=== PATIENT | male | born 1965 | race Caucasian/White ===

== ENCOUNTER 2018-07-03 11:22 | Inpatient (IN) | payer OTHER ==
[2018-07-03 12:33] VITALS: BMI 19.7
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
[2018-07-03] MEDS ORDERED: MENTHOL/PHENOL 1 EACH UD MM PRN (14:50)
[2018-07-03] MEDS ORDERED: MAG HYDROX/AL HYDROX/SIMETH 30 ML UNIT-DOSE CUP PO PRN (14:50)
[2018-07-03] MEDS ORDERED: IBUPROFEN 400 MG TABLET (FP) PO PRN (14:50)
[2018-07-03] MEDS ORDERED: P-EPHED 60MG/TRIPROLIDI 2.5MG TABLET PO PRN (14:50)
[2018-07-03] MEDS ORDERED: MAGNESIUM HYDROX 2400MG/30ML ORAL SUSPENSION 30 ML CUP PO PRN (14:50)
[2018-07-03] MEDS ORDERED: guaiFENesin/D-METHORPHAN HB 10 ML UNIT-DOSE CUPS PO PRN (14:50)
[2018-07-03] MEDS ORDERED: MAGNESIUM CITRATE 300 ML BOTTLE PO PRN (14:50)
[2018-07-03] MEDS ORDERED: hydrOXYzine PAMOATE 50 MG CAPSULE (FP) PO PRN (14:50)
[2018-07-03] MEDS ORDERED: LOPERAMIDE HCL 2 MG CAPSULE PO PRN (14:50)
[2018-07-03] MEDS ORDERED: COLLOIDAL OATMEAL 1 BAR EACH TP PRN (15:32)
[2018-07-03] MEDS: chlordiazePOXIDE HCL 25 MG CAPSULE PO PRN (15:59)
[2018-07-03] MEDS: ACETAMINOPHEN 325 MG TABLET (FP) PO PRN (16:46)
[2018-07-03] MEDS: chlordiazePOXIDE HCL 25 MG CAPSULE PO SCH ×2 (16:47→22:20)
[2018-07-03] MEDS: NICOTINE POLACRILEX 2 MG GUM BUC PRN (16:51)
[2018-07-03] MEDS: THIAMINE HCL 100 MG TABLET (FP) PO SCH (22:21)
[2018-07-03] MEDS: BUPRENORPHINE/NALOXONE 8 MG/2 MG FILM PACKET SL SCH (22:21)
[2018-07-03] MEDS: MELATONIN 5 MG TABLETS PO PRN (22:21)
[2018-07-04] MEDS: chlordiazePOXIDE HCL 25 MG CAPSULE PO SCH ×4 (05:32→22:02)
[2018-07-04] MEDS: BUPRENORPHINE/NALOXONE 8 MG/2 MG FILM PACKET SL SCH ×3 (05:33→22:02)
[2018-07-04 10:06] LABS: HEMATOCRIT 40.8 % (35.4-49); HEMOGLOBIN 13.4 GM/dL (11.7-16.9); MCH 28.4 pg (25.7-33.7); MCHC 32.9 g/dl (32.0-35.9); MEAN CELL VOLUME 86.2 fl (80-96); MEAN PLT VOLUME 9.3 fl (7.5-11.1); PLATELET COUNT 168 K/MM3 (134-434); RBC 4.73 M/mm3 (4.00-5.60); RDW 13.8 % (11.9-15.9)
[2018-07-04] MEDS: PRENATAL VITAMINS W/ FOLIC ACID TABLET (FP) PO SCH (10:19)
[2018-07-04 10:37] LABS: ALBUMIN 4.3 g/dl (3.4-5.0); ALK PHOS 84 U/L (45-117); ANION GAP 12 MMOL/L (8-16); BILIRUBIN,TOTAL 0.3 mg/dL (0.2-1); BLOOD UREA NITROGEN 18 mg/dL (7-18); CALCIUM 9.1 mg/dL (8.5-10.1); CHLORIDE 102 mmol/L (98-107); CO2 27 mmol/L (21-32); CREATININE 0.9 mg/dL (0.55-1.3); GLUCOSE,RANDOM 64 mg/dL (74-106); POTASSIUM 4.2 mmol/L (3.5-5.1); SGOT/AST 22 U/L (15-37); SGPT/ALT 17 U/L (13-61); SODIUM 140 mmol/L (136-145)
[2018-07-04] MEDS: ACETAMINOPHEN 325 MG TABLET (FP) PO PRN (11:16)
--- NOTE | 2018-07-04 14:09 | PN ---
S CIWA - CIWA Score Nausea/Vomitin Muscle Tremors: 4-Moderate,w/Arms Extend Anxiety: 4-Mod. Anxious/Guarded Agitation: 4-Moderately Restless Paroxysmal Sweats: 3 Orientation: 0-Oriented Tacttile Disturbances: 0-None Auditory Disturbances: 0-None Visual Disturbances: 0-None Headache: 1-Very Mild CIWA-Ar Total Score: 18 BHS Progress Note (SOAP) Subjective: Stomach ache, poor appetite, interrupted sleep, anxious Objective: 07/04/18 14:07 Last Vital Signs Temp Pulse Resp BP Pulse Ox 97.0 F L 75 18 94/68 07/04/18 09:30 07/04/18 09:30 07/04/18 09:30 07/04/18 09:30 Hypotension noted: 68 Laboratory Tests 07/04/18 07/04/18 07/04/18 07:00 07:00 07:00 WBC 5.0 RBC 4.73 Hgb 13.4 Hct 40.8 MCV 86.2 MCH 28.4 MCHC 32.9 RDW 13.8 Plt Count 168 MPV 9.3 Sodium 140 Potassium 4.2 Chloride 102 Carbon Dioxide 27 Anion Gap 12 BUN 18 Creatinine 0.9 Creat Clearance w eGFR > 60 Random Glucose 64 L Calcium 9.1 Total Bilirubin 0.3 AST 22 ALT 17 Alkaline Phosphatase 84 Total Protein 8.0 Albumin 4.3 RPR Titer HIV 1&2 Antibody Screen Negative HIV P24 Antigen Negative 07/04/18 07:00 WBC RBC Hgb Hct MCV MCH MCHC RDW Plt Count MPV Sodium Potassium Chloride Carbon Dioxide Anion Gap BUN Creatinine Creat Clearance w eGFR Random Glucose Calcium Total Bilirubin AST ALT Alkaline Phosphatase Total Protein Albumin RPR Titer Nonreactive HIV 1&2 Antibody Screen HIV P24 Antigen Labs reviewed Assessment: 07/04/18 14:08 Withdrawal symptoms Noted with hypotension Plan: Continue detox Hypotension: asymptomatic, encouraged PO water hydration
[2018-07-04] MEDS: AMMONIUM LACTATE 12% LOTION 225 GM BOTTLE TP SCH ×2 (14:20→22:46)
[2018-07-04] MEDS: NICOTINE POLACRILEX 2 MG GUM BUC PRN ×2 (17:18→18:50)
[2018-07-04] MEDS: THIAMINE HCL 100 MG TABLET (FP) PO SCH (22:02)
[2018-07-04] MEDS: MELATONIN 5 MG TABLETS PO PRN (22:02)
[2018-07-05] MEDS: chlordiazePOXIDE HCL 25 MG CAPSULE PO PRN ×3 (00:44→20:11)
[2018-07-05] MEDS: ACETAMINOPHEN 325 MG TABLET (FP) PO PRN ×2 (03:06→22:32)
[2018-07-05] MEDS: BUPRENORPHINE/NALOXONE 8 MG/2 MG FILM PACKET SL SCH ×3 (05:28→22:23)
[2018-07-05] MEDS: chlordiazePOXIDE HCL 25 MG CAPSULE PO SCH ×2 (05:28→10:03)
[2018-07-05] MEDS: PRENATAL VITAMINS W/ FOLIC ACID TABLET (FP) PO SCH (10:03)
[2018-07-05] MEDS: AMMONIUM LACTATE 12% LOTION 225 GM BOTTLE TP SCH ×2 (10:04→22:32)
[2018-07-05] MEDS: NICOTINE POLACRILEX 2 MG GUM BUC PRN ×2 (10:06→20:11)
--- NOTE | 2018-07-05 10:41 | PN ---
S CIWA - CIWA Score Nausea/Vomitin-Mild Nausea/No Vomiting Muscle Tremors: 4-Moderate,w/Arms Extend Anxiety: 2 Agitation: 3 Paroxysmal Sweats: 1-Minimal Palms Moist Orientation: 0-Oriented Tacttile Disturbances: 1-Very Mild Itch/Numbness Auditory Disturbances: 0-None Visual Disturbances: 0-None Headache: 1-Very Mild CIWA-Ar Total Score: 13 BHS Progress Note (SOAP) Subjective: tremor sweat anxiety restlessness patient reported that he is in suboxone program x 15 years "they never found out " health teaching on negative consequences of methadone mixed with suboxone Objective: 07/05/18 10:43 Vital Signs Temperature 97.0 F L 07/05/18 09:16 Pulse Rate 109 H 07/05/18 09:16 Respiratory Rate 20 07/05/18 09:16 Blood Pressure 100/70 07/05/18 09:16 O2 Sat by Pulse Oximetry (%) Laboratory Last Values WBC 5.0 K/mm3 (4.0-10.0) 07/04/18 07:00 RBC 4.73 M/mm3 (4.00-5.60) 07/04/18 07:00 Hgb 13.4 GM/dL (11.7-16.9) 07/04/18 07:00 Hct 40.8 % (35.4-49) 07/04/18 07:00 MCV 86.2 fl (80-96) 07/04/18 07:00 MCH 28.4 pg (25.7-33.7) 07/04/18 07:00 MCHC 32.9 g/dl (32.0-35.9) 07/04/18 07:00 RDW 13.8 % (11.9-15.9) 07/04/18 07:00 Plt Count 168 K/MM3 (134-434) 07/04/18 07:00 MPV 9.3 fl (7.5-11.1) 07/04/18 07:00 Sodium 140 mmol/L (136-145) 07/04/18 07:00 Potassium 4.2 mmol/L (3.5-5.1) 07/04/18 07:00 Chloride 102 mmol/L (98-107) 07/04/18 07:00 Carbon Dioxide 27 mmol/L (21-32) 07/04/18 07:00 Anion Gap 12 MMOL/L (8-16) 07/04/18 07:00 BUN 18 mg/dL (7-18) 07/04/18 07:00 Creatinine 0.9 mg/dL (0.55-1.3) 07/04/18 07:00 Creat Clearance w eGFR > 60 (>60) 07/04/18 07:00 Random Glucose 64 mg/dL (74-106) L 07/04/18 07:00 Calcium 9.1 mg/dL (8.5-10.1) 07/04/18 07:00 Total Bilirubin 0.3 mg/dL (0.2-1) 07/04/18 07:00 AST 22 U/L (15-37) 07/04/18 07:00 ALT 17 U/L (13-61) 07/04/18 07:00 Alkaline Phosphatase 84 U/L (45-117) 07/04/18 07:00 Total Protein 8.0 g/dl (6.4-8.2) 07/04/18 07:00 Albumin 4.3 g/dl (3.4-5.0) 07/04/18 07:00 RPR Titer Nonreactive (NONREACTIVE) 07/04/18 07:00 HIV 1&2 Antibody Screen Negative 07/04/18 07:00 HIV P24 Antigen Negative 07/04/18 07:00 lab noted Assessment: 07/05/18 10:44 withdrawal sx continue suboxone Plan: continue detox
[2018-07-05] MEDS: chlordiazePOXIDE 5 MG CAPSULE PO SCH ×2 (16:50→22:21)
[2018-07-05] MEDS ORDERED: CYCLOBENZAPRINE HCL 10 MG TABLET (FP) PO PRN (19:34)
[2018-07-05] MEDS: CYCLOBENZAPRINE HCL 5 MG TABLET PO PRN (20:15)
[2018-07-05] MEDS: THIAMINE HCL 100 MG TABLET (FP) PO SCH (22:34)
[2018-07-06] MEDS: chlordiazePOXIDE 5 MG CAPSULE PO SCH ×2 (05:22→10:21)
[2018-07-06] MEDS: CYCLOBENZAPRINE HCL 5 MG TABLET PO PRN (05:22)
[2018-07-06] MEDS: BUPRENORPHINE/NALOXONE 8 MG/2 MG FILM PACKET SL SCH ×2 (05:22→14:16)
[2018-07-06] MEDS: PRENATAL VITAMINS W/ FOLIC ACID TABLET (FP) PO SCH (10:18)
[2018-07-06] MEDS: AMMONIUM LACTATE 12% LOTION 225 GM BOTTLE TP SCH (10:18)
[2018-07-06] MEDS: NICOTINE POLACRILEX 2 MG GUM BUC PRN (10:23)
[2018-07-06] MEDS ORDERED: CYCLOBENZAPRINE HCL 10 MG TABLET (FP) PO PRN (11:19)
--- NOTE | 2018-07-06 13:30 | DS ---
[facility] Summary Admission Date: 07/03/18 Discharge Date: 07/06/18 (Administratively discharged) - History Present History: Alcohol Dependence, Cannabis Dependence, Cocaine Dependence, Opioid Dependence, MMTP Additional Comments: Patient threatened to leave AMA earlier this morning after he told designer writer that he wants more medication. Patient demanded that designer writer gives him clonidine despite his blood pressure being on the low side. Teacher told patient that she will order vistaril q6hr prn and flexeril 10mg q8hr prn for anxiety and back pain/spasm in which he agreed but insisted on getting clonidine. As per chart review, vistaril was already ordered along with flexeril 5mg q8hr prn which designer writer increased to 10mg. Teacher later received a call that patient left the floor without staff approval and was seen on the 4th floor and on the first floor then returned to the unit. Patient aware this is an administrative discharge as he cannot leave the unit. Patient instructed to call 911 if any withdrawal symptoms or feeling sick and to see his PCP within 3 days and to follow up with suboxone provider. Patient is A, A, Ox 3, in nad, ambulatory Pertinent Past History: Cannabis dependence Opioid dependence on agonist Alcohol dependence Cocaine dependence Nicotine dependence Hepatitis C Xerosis of skin - Physical Exam Results Vital Signs: Vital Signs Temperature 97.8 F 07/06/18 09:03 Pulse Rate 107 H 07/06/18 09:03 Respiratory Rate 16 07/06/18 09:03 Blood Pressure 94/68 07/06/18 09:03 O2 Sat by Pulse Oximetry (%) Pertinent Admission Physical Exam Findings: Withdrawal symptoms Laboratory Tests 07/04/18 07/04/18 07/04/18 07:00 07:00 07:00 WBC 5.0 RBC 4.73 Hgb 13.4 Hct 40.8 MCV 86.2 MCH 28.4 MCHC 32.9 RDW 13.8 Plt Count 168 MPV 9.3 Sodium 140 Potassium 4.2 Chloride 102 Carbon Dioxide 27 Anion Gap 12 BUN 18 Creatinine 0.9 Creat Clearance w eGFR > 60 Random Glucose 64 L Calcium 9.1 Total Bilirubin 0.3 AST 22 ALT 17 Alkaline Phosphatase 84 Total Protein 8.0 Albumin 4.3 RPR Titer HIV 1&2 Antibody Screen Negative HIV P24 Antigen Negative 07/04/18 07:00 WBC RBC Hgb Hct MCV MCH MCHC RDW Plt Count MPV Sodium Potassium Chloride Carbon Dioxide Anion Gap BUN Creatinine Creat Clearance w eGFR Random Glucose Calcium Total Bilirubin AST ALT Alkaline Phosphatase Total Protein Albumin RPR Titer Nonreactive HIV 1&2 Antibody Screen HIV P24 Antigen Labs reviewed - Treatment Hospital Course: Detox Protocol Followed, Responded well - Medication Discharge Medications: Ambulatory Orders Buprenorphine HCl/Naloxone HCl [Suboxone 8 mg-2 mg Sl Tablets] 1 tablet SL TID 07/03/18 - Diagnosis (1) Hypotension Current Visit: Yes Status: Acute (2) Cannabis dependence Current Visit: Yes Status: Chronic (3) Encounter for monitoring Suboxone maintenance therapy Current Visit: Yes Status: Acute (4) Alcohol dependence with uncomplicated withdrawal Current Visit: Yes Status: Acute (5) Cocaine dependence, uncomplicated Current Visit: Yes Status: Chronic (6) Nicotine dependence Current Visit: Yes Status: Chronic Qualifiers: Nicotine product type: cigarettes Substance use status: uncomplicated Qualified Code(s): F17.210 - Nicotine dependence, cigarettes, uncomplicated (7) Hepatitis C Current Visit: Yes Status: Chronic Qualifiers: Viral hepatitis chronicity: chronic Hepatic coma status: without hepatic coma Qualified Code(s): B18.2 - Chronic viral hepatitis C (8) Xerosis of skin Current Visit: Yes Status: Acute - AMA Did Patient Leave Against Medical Advice: No (Administratively discharged, left the unit without permission)
[2018-07-06 13:40] VITALS: BP 114/82; PULSE 83; TEMP 96.1
[2018-07-06] MEDS ORDERED: chlordiazePOXIDE HCL 10 MG CAPSULE PO SCH (17:00)
== END 2018-07-06 12:45 | disposition home or self-care (01) | DRG 773 ==
LOC: YASAS 11:22 → Y3N 14:54
PROC: HZ2ZZZZ Detoxification Services for Substance Abuse Treatment (ICD-10-PCS; principal; 2018-07-03)
DX: F10.230 Alcohol dependence with withdrawal, uncomplicated (principal); F14.20 Cocaine dependence, uncomplicated; F12.20 Cannabis dependence, uncomplicated; F11.20 Opioid dependence, uncomplicated; F17.210 Nicotine dependence, cigarettes, uncomplicated; I95.9 Hypotension, unspecified; L85.3 Xerosis cutis; R63.4 Abnormal weight loss; Z68.1 Body mass index [BMI] 19.9 or less, adult; Z51.81 Encounter for therapeutic drug level monitoring; Z86.19 Personal history of other infectious and parasitic diseases
CPT/HCPCS: 36415; 80053; 85027; 86593; 87389

== ENCOUNTER 2018-07-07 15:21 | Inpatient (IN) | payer OTHER ==
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
[2018-07-07] MEDS ORDERED: MAG HYDROX/AL HYDROX/SIMETH 30 ML UNIT-DOSE CUP PO PRN (17:28)
[2018-07-07] MEDS ORDERED: MAGNESIUM HYDROX 2400MG/30ML ORAL SUSPENSION 30 ML CUP PO PRN (17:28)
[2018-07-07] MEDS ORDERED: ACETAMINOPHEN 325 MG TABLET (FP) PO PRN (17:28)
[2018-07-07] MEDS ORDERED: MAGNESIUM CITRATE 300 ML BOTTLE PO PRN (17:28)
[2018-07-07] MEDS ORDERED: MENTHOL/PHENOL 1 EACH UD MM PRN (17:28)
[2018-07-07] MEDS ORDERED: LOPERAMIDE HCL 2 MG CAPSULE PO PRN (17:28)
[2018-07-07] MEDS: hydrOXYzine PAMOATE 50 MG CAPSULE (FP) PO PRN (20:02)
[2018-07-07] MEDS: CYCLOBENZAPRINE HCL 5 MG TABLET PO SCH (20:02)
[2018-07-07] MEDS: THIAMINE HCL 100 MG TABLET (FP) PO SCH (21:43)
[2018-07-07] MEDS ORDERED: MELATONIN 5 MG TABLETS PO PRN (22:00)
[2018-07-07] MEDS: BUPRENORPHINE/NALOXONE 8 MG/2 MG FILM PACKET SL SCH (22:19)
[2018-07-08 03:45] LABS: URINE APPEARANCE TURBID; URINE BILIRUBIN NEGATIVE (<2.0 mg/dL); URINE COLOR DKYELLOW; URINE GLUCOSE (UA) NEGATIVE (NEGATIVE); URINE KETONE NEGATIVE (NEGATIVE); URINE LEUK ESTERASE NEGATIVE (NEGATIVE); URINE NITRITE NEGATIVE (NEGATIVE); URINE PROTEIN NEGATIVE (NEGATIVE); URINE UROBILINOGEN NEGATIVE mg/dL (0.2-1.0)
[2018-07-08] MEDS: hydrOXYzine PAMOATE 50 MG CAPSULE (FP) PO PRN ×2 (06:41→14:23)
[2018-07-08] MEDS: DOCUSATE SODIUM 100 MG CAPSULE (FP) PO SCH ×3 (06:41→22:05)
[2018-07-08] MEDS: BUPRENORPHINE/NALOXONE 8 MG/2 MG FILM PACKET SL SCH ×3 (06:41→22:05)
[2018-07-08] MEDS: NICOTINE POLACRILEX 2 MG GUM BC PRN (09:00)
[2018-07-08] MEDS: PRENATAL VITAMINS W/ FOLIC ACID TABLET (FP) PO SCH (09:45)
[2018-07-08] MEDS: CYCLOBENZAPRINE HCL 5 MG TABLET PO SCH (09:45)
[2018-07-08] MEDS: PANTOPRAZOLE 20 MG TABLET (FP) PO SCH (09:45)
[2018-07-08] MEDS: LIDOCAINE 5% TOPICAL PATCH TP SCH (11:04)
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
[2018-07-08] MEDS ORDERED: ONDANSETRON *ODT* 4 MG TABLET SL PRN (17:16)
--- NOTE | 2018-07-08 17:21 | PN ---
[facility] Progress Note Note: patient complaining of nausea,aching pain,withdrawal symptom Vital Signs Temperature 97.9 F 07/08/18 06:47 Pulse Rate 110 H 07/08/18 06:47 Respiratory Rate 16 07/08/18 06:47 Blood Pressure 91/59 L 07/08/18 06:47 O2 Sat by Pulse Oximetry (%) withdrawal symptom treatment flexeril 10 mgs po tid prn zofran 4 mgs sl prn for nausea,vomiting continue suboxone 8mgs/2mgs sl tid close monitoring
[2018-07-08] MEDS: CYCLOBENZAPRINE HCL 10 MG TABLET (FP) PO PRN ×2 (17:35→22:07)
[2018-07-08] MEDS ORDERED: LIDOCAINE 5% TOPICAL PATCH TP ONE (17:42)
--- NOTE | 2018-07-08 21:15 | EKG ---
Test Reason : Blood Pressure : / mmHG Vent. Rate : 076 BPM Atrial Rate : 076 BPM P-R Int : 154 ms QRS Dur : 088 ms QT Int : 380 ms P-R-T Axes : 066 025 040 degrees QTc Int : 427 ms NORMAL SINUS RHYTHM NORMAL ECG NO PREVIOUS ECGS AVAILABLE Confirmed by BINA CHANDLER, MIRELA ([id number]) on 07/08/2018 9:15:32 PM Referred By: Confirmed By:MIRELA CURRAN MD
[2018-07-08] MEDS ORDERED: LIDOCAINE PATCH REMOVAL MC ONE (22:00)
[2018-07-08] MEDS: LIDOCAINE PATCH REMOVAL MC SCH (22:05)
[2018-07-08] MEDS: traZODone HCL 50 MG TABLET (FP) PO SCH (22:05)
[2018-07-08] MEDS: THIAMINE HCL 100 MG TABLET (FP) PO SCH (22:06)
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
[2018-07-09] MEDS: hydrOXYzine PAMOATE 50 MG CAPSULE (FP) PO PRN ×3 (06:29→18:31)
[2018-07-09] MEDS: BUPRENORPHINE/NALOXONE 8 MG/2 MG FILM PACKET SL SCH ×3 (06:29→21:52)
[2018-07-09] MEDS: DOCUSATE SODIUM 100 MG CAPSULE (FP) PO SCH ×3 (06:30→21:52)
[2018-07-09] MEDS: CYCLOBENZAPRINE HCL 10 MG TABLET (FP) PO PRN ×2 (06:30→18:31)
[2018-07-09] MEDS: PRENATAL VITAMINS W/ FOLIC ACID TABLET (FP) PO SCH (10:25)
[2018-07-09] MEDS: CYCLOBENZAPRINE HCL 5 MG TABLET PO SCH (10:25)
[2018-07-09] MEDS: PANTOPRAZOLE 20 MG TABLET (FP) PO SCH (10:25)
[2018-07-09] MEDS: LIDOCAINE 5% TOPICAL PATCH TP SCH (10:25)
[2018-07-09] MEDS: NICOTINE POLACRILEX 2 MG GUM BC PRN ×2 (14:12→21:52)
[2018-07-09] MEDS: THIAMINE HCL 100 MG TABLET (FP) PO SCH (21:50)
[2018-07-09] MEDS: LIDOCAINE PATCH REMOVAL MC SCH (21:50)
[2018-07-09] MEDS: traZODone HCL 50 MG TABLET (FP) PO SCH (21:52)
[2018-07-10] MEDS: DOCUSATE SODIUM 100 MG CAPSULE (FP) PO SCH ×3 (06:34→22:00)
[2018-07-10] MEDS: hydrOXYzine PAMOATE 50 MG CAPSULE (FP) PO PRN ×3 (06:35→19:56)
[2018-07-10] MEDS: BUPRENORPHINE/NALOXONE 8 MG/2 MG FILM PACKET SL SCH ×3 (06:35→22:04)
[2018-07-10] MEDS: PRENATAL VITAMINS W/ FOLIC ACID TABLET (FP) PO SCH (10:23)
[2018-07-10] MEDS: PANTOPRAZOLE 20 MG TABLET (FP) PO SCH (10:23)
[2018-07-10] MEDS: CYCLOBENZAPRINE HCL 5 MG TABLET PO SCH (10:23)
[2018-07-10] MEDS: LIDOCAINE 5% TOPICAL PATCH TP SCH (10:23)
[2018-07-10] MEDS: CYCLOBENZAPRINE HCL 10 MG TABLET (FP) PO PRN ×2 (14:14→22:05)
[2018-07-10] MEDS: traZODone HCL 50 MG TABLET (FP) PO SCH (22:00)
[2018-07-10] MEDS: THIAMINE HCL 100 MG TABLET (FP) PO SCH (22:00)
[2018-07-10] MEDS: LIDOCAINE PATCH REMOVAL MC SCH (22:11)
[2018-07-11] MEDS: CYCLOBENZAPRINE HCL 10 MG TABLET (FP) PO PRN ×2 (06:10→14:49)
[2018-07-11] MEDS: DOCUSATE SODIUM 100 MG CAPSULE (FP) PO SCH ×2 (06:10→14:49)
[2018-07-11] MEDS: BUPRENORPHINE/NALOXONE 8 MG/2 MG FILM PACKET SL SCH ×2 (06:10→14:49)
[2018-07-11] MEDS: hydrOXYzine PAMOATE 50 MG CAPSULE (FP) PO PRN ×2 (06:12→14:49)
[2018-07-11 07:53] VITALS: BP 101/67; PULSE 68; TEMP 97.7
[2018-07-11] MEDS ORDERED: diphenhydrAMINE HCL 25 MG CAPSULE (FP) PO PRN ×2 (08:57→08:58)
[2018-07-11] MEDS ORDERED: COLLOIDAL OATMEAL 1 BAR EACH TP ONE (09:00)
[2018-07-11] MEDS ORDERED: diphenhydrAMINE HCL 50 MG CAPSULE PO PRN (09:02)
--- NOTE | 2018-07-11 09:02 | PN ---
[facility] Progress Note Note: Pt states he is itching on both legs for about 10 days- since he was in detox. Was getting Aveeno and benadryl before coming to - says that helped him. PE Vital Signs - 24 hr 07/11/18 07/11/18 07/11/18 00:30 03:30 07:52 Temperature 97.7 F Pulse Rate 68 Respiratory 18 18 18 Rate Blood Pressure 101/67 legs- non-specific scratch osullivan on both legs- no specific rash noted- ass: itching no rash noted- but with increased itching per pt Plan: benadryl prn and aveeno soap
[2018-07-11] MEDS: PRENATAL VITAMINS W/ FOLIC ACID TABLET (FP) PO SCH (10:53)
[2018-07-11] MEDS: PANTOPRAZOLE 20 MG TABLET (FP) PO SCH (10:53)
[2018-07-11] MEDS: LIDOCAINE 5% TOPICAL PATCH TP SCH (10:54)
[2018-07-11] MEDS: NICOTINE POLACRILEX 2 MG GUM BC PRN (15:28)
--- NOTE | 2018-07-11 17:10 | PN ---
[facility] Progress Note Note: Psychiatry Attending's note (coverage) : Informed, by RN Myra, of patient's decision to leave the program. Mr Hollis was reportedly found this afternoon " smoking marihuana " in his room. When confronted by staff, he simply declared his decision to leave immediately. Patient declined to speak with this copy writer. Left [address]. NOT seen by psychiatrist.
== END 2018-07-11 16:40 | disposition left against medical advice (07) | DRG 770 ==
LOC: YASAS 15:21 → Y5N 17:56
PROVIDERS: ADMIT Psychiatry & Neurology Psychiatry; ATTEND Psychiatry & Neurology Psychiatry
PROC: HZ42ZZZ Group Counseling for Substance Abuse Treatment, Cognitive-Behavioral (ICD-10-PCS; principal; 2018-07-07)
DX: F10.20 Alcohol dependence, uncomplicated (principal); F12.20 Cannabis dependence, uncomplicated; F11.20 Opioid dependence, uncomplicated; F17.210 Nicotine dependence, cigarettes, uncomplicated; F19.24 Other psychoactive substance dependence with psychoactive substance-induced mood disorder; G47.00 Insomnia, unspecified; M54.5 Low back pain; G89.29 Other chronic pain; K59.00 Constipation, unspecified; Z86.19 Personal history of other infectious and parasitic diseases
CPT/HCPCS: 81003; 93005; 93010

== ENCOUNTER 2019-05-09 10:40 | Inpatient (IN) | payer OTHER ==
[2019-05-09 11:32] VITALS: BMI 20.1
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
[2019-05-09] MEDS ORDERED: MAGNESIUM HYDROX 2400MG/30ML ORAL SUSPENSION 30 ML CUP PO PRN (12:33)
[2019-05-09] MEDS ORDERED: ACETAMINOPHEN 325 MG TABLET (FP) PO PRN ×2 (12:33)
[2019-05-09] MEDS ORDERED: BISMUTH SUBSALICYLATE 524 MG/30 ML UD PO PRN (12:33)
[2019-05-09] MEDS ORDERED: MAGNESIUM CITRATE 300 ML BOTTLE PO PRN (12:33)
[2019-05-09] MEDS ORDERED: IBUPROFEN 400 MG TABLET (FP) PO PRN (12:33)
[2019-05-09] MEDS ORDERED: METHADONE HCL 10 MG TABLET (FOR DETOX USE ONLY) PO ONE (12:33)
[2019-05-09] MEDS ORDERED: NICOTINE POLACRILEX 4 MG GUM BC PRN (12:33)
[2019-05-09] MEDS ORDERED: MENTHOL/PHENOL 1 EACH UD MM PRN (12:33)
[2019-05-09] MEDS ORDERED: cloNIDine HCL 0.1 MG TABLET PO PRN (12:33)
[2019-05-09] MEDS ORDERED: chlordiazePOXIDE HCL 25 MG CAPSULE PO PRN (12:33)
[2019-05-09] MEDS ORDERED: MAG HYDROX/AL HYDROX/SIMETH 30 ML UNIT-DOSE CUP PO PRN (12:33)
[2019-05-09] MEDS: chlordiazePOXIDE HCL 25 MG CAPSULE PO SCH ×2 (17:09→22:06)
[2019-05-09 17:34] LABS: HEMATOCRIT 38.1 % (35.4-49); HEMOGLOBIN 12.7 GM/dL (11.7-16.9); MCH 28.9 pg (25.7-33.7); MCHC 33.2 g/dl (32.0-35.9); MEAN CELL VOLUME 87.1 fl (80-96); MEAN PLT VOLUME 8.9 fl (7.5-11.1); PLATELET COUNT 242 K/MM3 (134-434); RBC 4.38 M/mm3 (4.00-5.60); RDW 13.3 % (11.9-15.9); WHITE BLOOD COUNT 6.8 K/mm3 (4.0-10.0)
[2019-05-09 17:39] LABS: ALBUMIN 4.1 g/dl (3.4-5.0); BILIRUBIN,TOTAL 0.5 mg/dL (0.2-1); BLOOD UREA NITROGEN 20.2 mg/dL (7-18); CALCIUM 9.3 mg/dL (8.5-10.1); POTASSIUM 4.4 mmol/L (3.5-5.1); TOT PROT 7.6 g/dl (6.4-8.2)
[2019-05-09] MEDS: MELATONIN 5 MG TABLETS PO PRN (22:07)
[2019-05-09] MEDS: THIAMINE HCL 100 MG TABLET (FP) PO SCH (22:07)
[2019-05-10] MEDS: chlordiazePOXIDE HCL 25 MG CAPSULE PO SCH ×4 (05:53→22:02)
[2019-05-10] MEDS ORDERED: METHADONE HCL 5 MG TABLET (FOR DETOX USE ONLY) ONE (08:43)
[2019-05-10] MEDS ORDERED: METHADONE HCL 10 MG TABLET (FOR DETOX USE ONLY) ONE (08:43)
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
[2019-05-10] MEDS ORDERED: METHADONE (DETOX) 20 MG, METHADONE (DETOX) 5 MG PO ONE (10:00)
[2019-05-10] MEDS: SERTRALINE HCL 50 MG TABLET (FP) PO SCH (10:27)
[2019-05-10] MEDS: PRENATAL VITAMINS W/ FOLIC ACID TABLET (FP) PO SCH (10:27)
[2019-05-10] MEDS: METHOCARBAMOL 500 MG TABLET PO PRN ×2 (10:31→22:09)
--- NOTE | 2019-05-10 16:20 | PN ---
S CIWA - CIWA Score Nausea/Vomitin-No Nausea/No Vomiting Muscle Tremors: 3 Anxiety: 3 Agitation: 2 Paroxysmal Sweats: No Perspiration Orientation: 2-Disoriented Date<2 days Tacttile Disturbances: 2-Mild Itch/Numbness/Burn Auditory Disturbances: 0-None Visual Disturbances: 1-Very Mild Sensitivity Headache: 0-None Present CIWA-Ar Total Score: 13 S COWS - Scale Resting Pulse: 0= [place] 80 or Below Sweatin= No chills or Flushing Restless Observation: 1= Difficult to Sit Still Pupil Size: 0= Normal to Room Light Bone or Joint Aches: 2= Severe Diffuse Aches Runny Nose/ Eye Tearin= None GI Upset > 30mins: 0= None Tremor Observation of Outstretched Hands: 2= Slight Tremor Visible Yawning Observation: 1= 1-2x During Session Anxiety or Irritability: 2=Irritable/Anxious Goose Flesh Skin: 3=Piloerection COWS Score: 11 S Progress Note (SOAP) Subjective: Tremors, Anxious, Body Aches, Interrupted Sleep. Objective: PATIENT A & O X 2 (UNCERTAIN ABOUT CURRENT DAY/ DATE). PATIENT OBSERVED AMBULATING ON DETOX UNIT UNASSISTED. IN NO ACUTE DISTRESS. 05/10/19 16:22 Vital Signs Temperature 97.5 F L 05/10/19 14:10 Pulse Rate 66 05/10/19 15:11 Respiratory Rate 18 05/10/19 15:11 Blood Pressure 98/63 05/10/19 15:11 O2 Sat by Pulse Oximetry (%) Laboratory Tests 05/09/19 05/09/19 05/09/19 13:30 13:30 13:30 WBC 6.8 RBC 4.38 Hgb 12.7 Hct 38.1 MCV 87.1 MCH 28.9 MCHC 33.2 RDW 13.3 Plt Count 242 D MPV 8.9 Sodium 137 Potassium 4.4 Chloride 101 Carbon Dioxide 30 Anion Gap 6 L BUN 20.2 H Creatinine 1.0 Est GFR (CKD-EPI)AfAm 99.85 Est GFR (CKD-EPI)NonAf 86.15 Random Glucose 112 H Calcium 9.3 Total Bilirubin 0.5 AST 18 ALT 13 Alkaline Phosphatase 79 Total Protein 7.6 Albumin 4.1 RPR Titer Nonreactive HIV 1&2 Antibody Screen HIV P24 Antigen 05/09/19 13:30 WBC RBC Hgb Hct MCV MCH MCHC RDW Plt Count MPV Sodium Potassium Chloride Carbon Dioxide Anion Gap BUN Creatinine Est GFR (CKD-EPI)AfAm Est GFR (CKD-EPI)NonAf Random Glucose Calcium Total Bilirubin AST ALT Alkaline Phosphatase Total Protein Albumin RPR Titer HIV 1&2 Antibody Screen Negative HIV P24 Antigen Negative LABS NOTED. Assessment: 05/10/19 16:22 WITHDRAWAL SYMPTOMS. HYPOTENSION. 05/10/19 16:22 Plan: CONTINUE DETOX. INCREASE DAILY PO WATER INTAKE.
[2019-05-10] MEDS: THIAMINE HCL 100 MG TABLET (FP) PO SCH (22:02)
[2019-05-10] MEDS: traZODone HCL 100 MG TABLET (FP) PO SCH (22:02)
[2019-05-10] MEDS: hydrOXYzine PAMOATE 25 MG CAPSULE (FP) PO PRN (22:10)
[2019-05-11] MEDS: chlordiazePOXIDE HCL 25 MG CAPSULE PO SCH ×4 (05:48→22:07)
[2019-05-11] MEDS: METHOCARBAMOL 500 MG TABLET PO PRN ×2 (05:48→17:35)
[2019-05-11] MEDS ORDERED: METHADONE HCL 10 MG TABLET (FOR DETOX USE ONLY) PO ONE (10:00)
[2019-05-11] MEDS: SERTRALINE HCL 50 MG TABLET (FP) PO SCH (10:17)
[2019-05-11] MEDS: PRENATAL VITAMINS W/ FOLIC ACID TABLET (FP) PO SCH (10:18)
[2019-05-11] MEDS ORDERED: TRIMETHOBENZAMIDE HCL 300 MG CAPSULE PO PRN (13:54)
--- NOTE | 2019-05-11 16:20 | PN ---
S CIWA - CIWA Score Nausea/Vomitin Muscle Tremors: 3 Anxiety: 3 Agitation: 2 Paroxysmal Sweats: No Perspiration Orientation: 2-Disoriented Date<2 days Tacttile Disturbances: 0-None Auditory Disturbances: 0-None Visual Disturbances: 0-None Headache: 0-None Present CIWA-Ar Total Score: 13 BHS COWS - Scale Resting Pulse: 1= [place] 81-100 Sweatin= No chills or Flushing Restless Observation: 1= Difficult to Sit Still Pupil Size: 0= Normal to Room Light Bone or Joint Aches: 2= Severe Diffuse Aches Runny Nose/ Eye Tearin= None GI Upset > 30mins: 2= Nausea/Diarrhea Tremor Observation of Outstretched Hands: 2= Slight Tremor Visible Yawning Observation: 1= 1-2x During Session Anxiety or Irritability: 2=Irritable/Anxious Goose Flesh Skin: 0=Smooth Skin COWS Score: 11 BHS Progress Note (SOAP) Subjective: Tremors, Anxious, Nausea, Body Aches, Interrupted Sleep. Objective: PATIENT A & O X 2 (UNCERTAIN ABOUT CURRENT DAY/ DATE). PATIENT OBSERVED AMBULATING ON DETOX UNIT UNASSISTED. IN NO ACUTE DISTRESS. 05/11/19 16:20 Vital Signs Temperature 97.6 F 05/11/19 13:45 Pulse Rate 100 H 05/11/19 13:45 Respiratory Rate 20 05/11/19 13:45 Blood Pressure 91/64 05/11/19 13:45 O2 Sat by Pulse Oximetry (%) Laboratory Tests 05/09/19 05/09/19 05/09/19 13:30 13:30 13:30 WBC 6.8 RBC 4.38 Hgb 12.7 Hct 38.1 MCV 87.1 MCH 28.9 MCHC 33.2 RDW 13.3 Plt Count 242 D MPV 8.9 Sodium 137 Potassium 4.4 Chloride 101 Carbon Dioxide 30 Anion Gap 6 L BUN 20.2 H Creatinine 1.0 Est GFR (CKD-EPI)AfAm 99.85 Est GFR (CKD-EPI)NonAf 86.15 Random Glucose 112 H Calcium 9.3 Total Bilirubin 0.5 AST 18 ALT 13 Alkaline Phosphatase 79 Total Protein 7.6 Albumin 4.1 RPR Titer Nonreactive HIV 1&2 Antibody Screen HIV P24 Antigen 05/09/19 13:30 WBC RBC Hgb Hct MCV MCH MCHC RDW Plt Count MPV Sodium Potassium Chloride Carbon Dioxide Anion Gap BUN Creatinine Est GFR (CKD-EPI)AfAm Est GFR (CKD-EPI)NonAf Random Glucose Calcium Total Bilirubin AST ALT Alkaline Phosphatase Total Protein Albumin RPR Titer HIV 1&2 Antibody Screen Negative HIV P24 Antigen Negative LABS NOTED. Assessment: 05/11/19 16:20 WITHDRAWAL SYMPTOMS. HYPOTENSION. Plan: CONTINUE DETOX. INCREASE DAILY PO WATER INTAKE.
[2019-05-11] MEDS: hydrOXYzine PAMOATE 25 MG CAPSULE (FP) PO PRN (16:47)
[2019-05-11] MEDS: traZODone HCL 100 MG TABLET (FP) PO SCH (22:07)
[2019-05-11] MEDS: THIAMINE HCL 100 MG TABLET (FP) PO SCH (22:07)
[2019-05-11] MEDS: MELATONIN 5 MG TABLETS PO PRN (22:08)
[2019-05-12] MEDS ORDERED: chlordiazePOXIDE HCL 10 MG CAPSULE PO PRN
[2019-05-12] MEDS: METHOCARBAMOL 500 MG TABLET PO PRN (05:34)
[2019-05-12] MEDS: chlordiazePOXIDE HCL 10 MG CAPSULE PO SCH ×4 (05:34→22:20)
[2019-05-12] MEDS ORDERED: METHADONE HCL 5 MG TABLET (FOR DETOX USE ONLY) ONE (08:50)
[2019-05-12] MEDS ORDERED: METHADONE HCL 10 MG TABLET (FOR DETOX USE ONLY) ONE (08:50)
[2019-05-12] MEDS ORDERED: METHADONE (DETOX) 10 MG, METHADONE (DETOX) 5 MG PO ONE (10:00)
[2019-05-12] MEDS: PRENATAL VITAMINS W/ FOLIC ACID TABLET (FP) PO SCH (10:07)
[2019-05-12] MEDS: SERTRALINE HCL 50 MG TABLET (FP) PO SCH (10:07)
--- NOTE | 2019-05-12 10:23 | PN ---
[facility] CIWA - CIWA Score Nausea/Vomitin-No Nausea/No Vomiting Muscle Tremors: None Anxiety: 3 Agitation: 0-Normal Activity Paroxysmal Sweats: 3 Orientation: 0-Oriented Tacttile Disturbances: 0-None Auditory Disturbances: 0-None Visual Disturbances: 0-None Headache: 2-Mild CIWA-Ar Total Score: 8 S COWS - Scale Resting Pulse: 0= [place] 80 or Below Sweatin= Beads of Sweat on Face Restless Observation: 1= Difficult to Sit Still Pupil Size: 0= Normal to Room Light Bone or Joint Aches: 1= Mild Discomfort Runny Nose/ Eye Tearin= None GI Upset > 30mins: 0= None Tremor Observation of Outstretched Hands: 0= None Yawning Observation: 1= 1-2x During Session Anxiety or Irritability: 2=Irritable/Anxious Goose Flesh Skin: 0=Smooth Skin COWS Score: 8 [facility] Progress Note (SOAP) Subjective: c/o anxiety, irritability, sweats, and headache. Objective: 05/12/19 10:22 Vital Signs 05/12/19 05/12/19 05/12/19 03:30 06:37 09:28 Temperature 99.3 F 97.4 F L Pulse Rate 62 66 Respiratory 18 16 18 Rate Blood Pressure 92/60 95/58 L Lab Results WBC 6.8 K/mm3 (4.0-10.0) 05/09/19 13:30 RBC 4.38 M/mm3 (4.00-5.60) 05/09/19 13:30 Hgb 12.7 GM/dL (11.7-16.9) 05/09/19 13:30 Hct 38.1 % (35.4-49) 05/09/19 13:30 MCV 87.1 fl (80-96) 05/09/19 13:30 MCHC 33.2 g/dl (32.0-35.9) 05/09/19 13:30 RDW 13.3 % (11.9-15.9) 05/09/19 13:30 Plt Count 242 K/MM3 (134-434) D 05/09/19 13:30 Sodium 137 mmol/L (136-145) 05/09/19 13:30 Potassium 4.4 mmol/L (3.5-5.1) 05/09/19 13:30 Chloride 101 mmol/L (98-107) 05/09/19 13:30 Carbon Dioxide 30 mmol/L (21-32) 05/09/19 13:30 Anion Gap 6 MMOL/L (8-16) L 05/09/19 13:30 BUN 20.2 mg/dL (7-18) H 05/09/19 13:30 Creatinine 1.0 mg/dL (0.55-1.3) 05/09/19 13:30 Random Glucose 112 mg/dL (74-106) H 05/09/19 13:30 Calcium 9.3 mg/dL (8.5-10.1) 05/09/19 13:30 Labs noted. Assessment: 05/12/19 10:23 AOX3, in no acute respiratory distress. Full ROM, ambulating in the unit. Withdrawal symptoms. Plan: continue detox.
[2019-05-12] MEDS: hydrOXYzine PAMOATE 25 MG CAPSULE (FP) PO PRN (17:07)
[2019-05-12] MEDS: traZODone HCL 100 MG TABLET (FP) PO SCH (22:20)
[2019-05-12] MEDS: THIAMINE HCL 100 MG TABLET (FP) PO SCH (22:20)
[2019-05-13] MEDS ORDERED: TRIMETHOBENZAMIDE HCL 200MG/2ML INJ IM ONE (05:42)
[2019-05-13] MEDS: chlordiazePOXIDE HCL 10 MG CAPSULE PO SCH ×2 (06:21→18:00)
[2019-05-13] MEDS: METHOCARBAMOL 500 MG TABLET PO PRN (06:22)
[2019-05-13] MEDS ORDERED: METHADONE HCL 10 MG TABLET (FOR DETOX USE ONLY) PO ONE (10:00)
--- NOTE | 2019-05-13 10:09 | PN ---
[facility] CIWA - CIWA Score Nausea/Vomitin-No Nausea/No Vomiting Muscle Tremors: None Anxiety: 3 Agitation: 0-Normal Activity Paroxysmal Sweats: 2 Orientation: 0-Oriented Tacttile Disturbances: 0-None Auditory Disturbances: 0-None Visual Disturbances: 0-None Headache: 0-None Present CIWA-Ar Total Score: 5 BHS COWS - Scale Resting Pulse: 0= [place] 80 or Below Sweatin= Chills/Flushing Restless Observation: 0= Sits Still Pupil Size: 0= Normal to Room Light Bone or Joint Aches: 1= Mild Discomfort Runny Nose/ Eye Tearin= Nasal Congestion GI Upset > 30mins: 0= None Tremor Observation of Outstretched Hands: 0= None Yawning Observation: 1= 1-2x During Session Anxiety or Irritability: 1=Feels Anxious/Irritable Goose Flesh Skin: 0=Smooth Skin COWS Score: 5 S Progress Note (SOAP) Subjective: c/o mild sweats, anxiety, and stuffy nose. Objective: 05/13/19 10:08 Vital Signs 05/13/19 05/13/19 05/13/19 03:30 06:16 : Temperature 99.1 F 99.6 F Pulse Rate 85 51 L Respiratory 18 20 18 Rate Blood Pressure 103/69 94/59 L Lab Results WBC 6.8 K/mm3 (4.0-10.0) 05/09/19 13:30 RBC 4.38 M/mm3 (4.00-5.60) 05/09/19 13:30 Hgb 12.7 GM/dL (11.7-16.9) 05/09/19 13:30 Hct 38.1 % (35.4-49) 05/09/19 13:30 MCV 87.1 fl (80-96) 05/09/19 13:30 MCHC 33.2 g/dl (32.0-35.9) 05/09/19 13:30 RDW 13.3 % (11.9-15.9) 05/09/19 13:30 Plt Count 242 K/MM3 (134-434) D 05/09/19 13:30 Sodium 137 mmol/L (136-145) 05/09/19 13:30 Potassium 4.4 mmol/L (3.5-5.1) 05/09/19 13:30 Chloride 101 mmol/L (98-107) 05/09/19 13:30 Carbon Dioxide 30 mmol/L (21-32) 05/09/19 13:30 Anion Gap 6 MMOL/L (8-16) L 05/09/19 13:30 BUN 20.2 mg/dL (7-18) H 05/09/19 13:30 Creatinine 1.0 mg/dL (0.55-1.3) 05/09/19 13:30 Random Glucose 112 mg/dL (74-106) H 05/09/19 13:30 Calcium 9.3 mg/dL (8.5-10.1) 05/09/19 13:30 Labs noted. Assessment: 05/13/19 10:08 AOX3, in no respiratory distress. Full ROM, ambulating in the unit. Mild withdrawal symptoms. For d/c tomorrow. Plan: continue detox. D/C in AM.
[2019-05-13] MEDS: SERTRALINE HCL 50 MG TABLET (FP) PO SCH (10:18)
[2019-05-13] MEDS: PRENATAL VITAMINS W/ FOLIC ACID TABLET (FP) PO SCH (10:19)
[2019-05-13] MEDS: hydrOXYzine PAMOATE 25 MG CAPSULE (FP) PO PRN ×2 (13:44→22:08)
[2019-05-13] MEDS: THIAMINE HCL 100 MG TABLET (FP) PO SCH (22:06)
[2019-05-13] MEDS: traZODone HCL 100 MG TABLET (FP) PO SCH (22:06)
[2019-05-13] MEDS: MELATONIN 5 MG TABLETS PO PRN (22:07)
[2019-05-14] MEDS ORDERED: chlordiazePOXIDE HCL 10 MG CAPSULE PO ONE (05:00)
[2019-05-14] MEDS: hydrOXYzine PAMOATE 25 MG CAPSULE (FP) PO PRN ×2 (05:22→12:20)
[2019-05-14] MEDS ORDERED: METHADONE HCL 5 MG TABLET (FOR DETOX USE ONLY) PO ONE (06:00)
[2019-05-14] MEDS: SERTRALINE HCL 50 MG TABLET (FP) PO SCH (10:09)
[2019-05-14] MEDS: PRENATAL VITAMINS W/ FOLIC ACID TABLET (FP) PO SCH (10:09)
[2019-05-14] MEDS: METHOCARBAMOL 500 MG TABLET PO PRN (10:10)
[2019-05-14 13:05] VITALS: BP 104/61; PULSE 77; TEMP 96.9
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
== END 2019-05-14 14:52 | disposition other institution (70) | DRG 773 ==
LOC: YASAS 10:40 → Y3N 13:13
PROVIDERS: ADMIT Allergy & Immunology; ATTEND Allergy & Immunology
PROC: HZ2ZZZZ Detoxification Services for Substance Abuse Treatment (ICD-10-PCS; principal; 2019-05-09)
DX: F10.230 Alcohol dependence with withdrawal, uncomplicated (principal); F11.23 Opioid dependence with withdrawal; F14.20 Cocaine dependence, uncomplicated; F12.20 Cannabis dependence, uncomplicated; F17.210 Nicotine dependence, cigarettes, uncomplicated; F19.24 Other psychoactive substance dependence with psychoactive substance-induced mood disorder; F32.9 Major depressive disorder, single episode, unspecified; I95.9 Hypotension, unspecified; B18.2 Chronic viral hepatitis C; Z98.890 Other specified postprocedural states; Z91.013 Allergy to seafood
CPT/HCPCS: 36415; 80053; 85027; 86593; 87389

== ENCOUNTER 2019-05-14 14:52 | Inpatient (IN) | payer OTHER ==
[2019-05-14] MEDS ORDERED: LOPERAMIDE HCL 2 MG CAPSULE PO PRN (15:33)
[2019-05-14] MEDS ORDERED: MAGNESIUM CITRATE 300 ML BOTTLE PO PRN (15:33)
[2019-05-14] MEDS ORDERED: MENTHOL/PHENOL 1 EACH UD MM PRN (15:33)
[2019-05-14] MEDS ORDERED: P-EPHED 60MG/TRIPROLIDI 2.5MG TABLET PO PRN (15:33)
[2019-05-14] MEDS ORDERED: ACETAMINOPHEN 325 MG TABLET (FP) PO PRN (15:33)
[2019-05-14] MEDS ORDERED: MAG HYDROX/AL HYDROX/SIMETH 30 ML UNIT-DOSE CUP PO PRN (15:33)
[2019-05-14] MEDS ORDERED: guaiFENesin 200 MG/10 ML 10 ML UNIT-DOSE CUPS PO PRN (15:33)
[2019-05-14] MEDS ORDERED: MAGNESIUM HYDROX 2400MG/30ML ORAL SUSPENSION 30 ML CUP PO PRN (15:33)
[2019-05-14] MEDS ORDERED: IBUPROFEN 400 MG TABLET (FP) PO PRN (15:33)
[2019-05-14] MEDS ORDERED: ONDANSETRON *ODT* 4 MG TABLET SL PRN (15:34)
--- NOTE | 2019-05-14 15:35 | HP ---
[facility] Rehab Assess/Revision - Admission History Admitted to Rehab from: [facility] Date of Admission to Rehab: 05/14/2019 - Vital signs Vital Signs: Vital Signs Period Temp Pulse Resp BP Sys/Ribeiro Pulse Ox Last 24 Hr 97.6 F 80 16 100/67 - Findings Detox History & Physical reviewed: Yes Concur with findings: Yes Comments/Additional Findings: PATIENT'S MEDICAL / MEDICATION HISTORY REVIEWED PRIOR TO DISCHARGE FROM DETOX UNIT. PATIENT WAS DISCHARGED FROM DETOX UNIT TO BE TAKEN OVER TO REHAB UNIT IN STABLE MEDICAL CONDITION. Inpatient Rehab Admission - Rehab Decision to Admit Inpatient rehab admission?: Yes - Initial Determination Are CD services needed?: Yes Free of communicable disease: Yes Not in need of hospitalization: Yes - Rehab Admission Criteria Previous failed treatment: Yes Poor recovery environment: Yes Comorbidities: Yes Lacks judgement: No Patient is meeting Inpatient Rehab admission criteria:: Yes
[2019-05-14] MEDS: THIAMINE HCL 100 MG TABLET (FP) PO SCH (21:32)
[2019-05-14] MEDS: MELATONIN 5 MG TABLETS PO PRN (21:32)
[2019-05-14] MEDS ORDERED: traZODone HCL 50 MG TABLET (FP) PO ONE (22:26)
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
[2019-05-15] MEDS: PRENATAL VITAMINS W/ FOLIC ACID TABLET (FP) PO SCH (09:27)
[2019-05-15] MEDS: SERTRALINE HCL 50 MG TABLET (FP) PO SCH (09:30)
[2019-05-15] MEDS: hydrOXYzine PAMOATE 25 MG CAPSULE (FP) PO PRN ×2 (09:30→13:33)
[2019-05-15] MEDS ORDERED: SERTRALINE HCL 50 MG TABLET (FP) PO ONE (10:00)
[2019-05-15] MEDS ORDERED: CYCLOBENZAPRINE HCL 10 MG TABLET (FP) PO SCH (14:00)
[2019-05-15] MEDS: METHOCARBAMOL 500 MG TABLET PO SCH ×2 (17:39→21:17)
[2019-05-15] MEDS: hydrOXYzine PAMOATE 50 MG CAPSULE (FP) PO PRN (17:39)
[2019-05-15] MEDS: THIAMINE HCL 100 MG TABLET (FP) PO SCH (21:17)
[2019-05-15] MEDS: MELATONIN 5 MG TABLETS PO PRN (21:17)
[2019-05-15] MEDS: traZODone HCL 100 MG TABLET (FP) PO SCH (21:17)
[2019-05-16] MEDS: hydrOXYzine PAMOATE 50 MG CAPSULE (FP) PO PRN ×3 (06:41→14:10)
[2019-05-16 07:16] VITALS: TEMP 97.8
[2019-05-16] MEDS: SERTRALINE HCL 50 MG TABLET (FP) PO SCH (09:52)
[2019-05-16] MEDS: PRENATAL VITAMINS W/ FOLIC ACID TABLET (FP) PO SCH (09:52)
[2019-05-16] MEDS: METHOCARBAMOL 500 MG TABLET PO SCH ×4 (09:53→21:23)
[2019-05-16] MEDS ORDERED: NICOTINE POLACRILEX 2 MG GUM BUC PRN (11:32)
[2019-05-16] MEDS: MELATONIN 5 MG TABLETS PO PRN (21:23)
[2019-05-16] MEDS: THIAMINE HCL 100 MG TABLET (FP) PO SCH (21:23)
[2019-05-16] MEDS: traZODone HCL 100 MG TABLET (FP) PO SCH (21:23)
[2019-05-17] MEDS: hydrOXYzine PAMOATE 50 MG CAPSULE (FP) PO PRN ×2 (06:23→09:35)
[2019-05-17 06:59] VITALS: BP 119/78; PULSE 97
--- NOTE | 2019-05-17 09:10 | PN ---
Psychiatric Progress Note Vital Signs: Vital Signs Period Temp Pulse Resp BP Sys/Ribeiro Pulse Ox Last 24 Hr 97.8 F 97 18-18 119/78 Date of Session: 05/17/19 Chief Complaint:: "I'm not sleeping." HPI: Patient admitted to for alcohol, cocaine, and opiate dependence. Patient c/o difficulty sleeping. ROS: Patient is coherent, calm and cooperative. Current Medications: Active Medications Generic Name Dose Route Start Last Admin Trade Name Freq PRN Reason Stop Dose Admin Acetaminophen 650 mg 05/14/19 15:33 Tylenol - PO Q4H PRN FEVER Al Hydroxide/Mg Hydroxide 30 ml 05/14/19 15:33 Mylanta Oral Suspension - PO Q6H PRN DYSPEPSIA Eucalyptus/Menthol/Phenol/Sorbitol 1 each 05/14/19 15:33 Cepastat Lozenge - MM Q4H PRN SORE THROAT Guaifenesin 10 ml 05/14/19 15:33 Robitussin - PO Q6H PRN COUGH Hydroxyzine Pamoate 50 mg 05/15/19 14:53 05/17/19 06:23 Vistaril - PO 50 mg Q4H PRN Administration AGITATION Ibuprofen 400 mg 05/14/19 15:33 05/16/19 06:41 Motrin - PO 400 mg Q6H PRN Administration Pain Level 4-6 Loperamide HCl 4 mg 05/14/19 15:33 Imodium - PO Q6H PRN DIARRHEA Magnesium Citrate 300 ml 05/14/19 15:33 Citroma - PO Q48H PRN CONSTIPATION Magnesium Hydroxide 30 ml 05/14/19 15:33 Milk Of Magnesia - PO DAILY PRN CONSTIPATION Melatonin 5 mg 05/14/19 22:00 05/16/19 21:23 Melatonin PO 5 mg HS PRN Administration INSOMNIA Methocarbamol 500 mg 05/15/19 18:00 05/16/19 21:23 Robaxin - PO 500 mg QID MAKAYLA Administration Nicotine Polacrilex 2 mg 05/16/19 11:32 05/16/19 13:33 Nicorette Gum - BUC 2 mg Q2H PRN Administration NICOTINE REPLACEMENT RX Ondansetron HCl 4 mg 05/14/19 15:34 05/15/19 09:30 Zofran Odt - SL 4 mg Q8H PRN Administration NAUSEA AND/OR VOMITING Multivit/Folic Acid/Iron 1 tab 05/15/19 10:00 05/16/19 09:52 Vitamins (Sjr) - PO 1 tab DAILY MAKAYLA Administration Pseudoephedrine/Triprolidine 1 combo 05/14/19 15:33 Actifed - PO TID PRN NASAL CONGESTION Sertraline HCl 100 mg 05/15/19 10:00 05/16/19 09:52 Zoloft - PO 100 mg DAILY MAKAYLA Administration Thiamine HCl 100 mg 05/14/19 22:00 05/16/19 21:23 Vitamin B1 - PO 100 mg HS MAKAYLA Administration Trazodone HCl 100 mg 05/15/19 22:00 05/16/19 21:23 Desyrel - PO 100 mg HS MAKAYLA Administration Medication(s) Change(s): Yes. Current Side Effect: No Lab tests ordered: No Lab tests reviewed: Yes Provider note:: Patient reports difficulty sleeping despite accepting trazodone 100mg. States that trazodone was effective while in detox but is now having difficulty sleeping while in rehab. Will order Belsomra 10mg. Benefits and side effects discussed. Verbal consent given. Total face to face time:: 20 Mental Status Exam - Mental Status Exam Alert and Oriented to: Time, Place, Person Cognitive Function: Good Patient Appearance: Well Groomed Mood: Euthymic Affect: Appropriate Patient Behavior: Appropriate Speech Pattern: Appropriate Voice Loudness: Normal Thought Process: Goal Oriented Thought Disorder: Not Present Hallucinations: Denies Suicidal Ideation: Denies Homicidal Ideation: Denies Insight/Judgement: Poor Sleep: Poorly Appetite: Fair Muscle strength/Tone: Normal Gait/Station: Normal Psychiatric Treatment Plan - Problem List (1) Alcohol dependence Comment: .. (2) Cannabis dependence Comment: Self-report and history. Tox screen is negative for cannabis on this admission. (3) Cocaine dependence, uncomplicated Comment: .. (4) History of depression Comment: .. (5) Opioid dependence Comment: ..
[2019-05-17] MEDS: PRENATAL VITAMINS W/ FOLIC ACID TABLET (FP) PO SCH (09:35)
[2019-05-17] MEDS: METHOCARBAMOL 500 MG TABLET PO SCH (09:35)
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
--- NOTE | 2019-05-17 11:35 | PN ---
[facility] Progress Note Note: Patient is discharge today. Script for 30 days of medications(Zoloft 100 mg/day , Trazadone 100 mg/hs) are electronically transmitted to [facility] at [address] [place] [id number]
[2019-05-17] MEDS ORDERED: SUVOREXANT 10 MG TABLET PO PRN (22:00)
== END 2019-05-17 10:12 | disposition home or self-care (01) | DRG 772 ==
LOC: YASAS 14:52 → Y3W 14:53
PROVIDERS: ADMIT Neuromusculoskeletal Medicine & OMM; ATTEND Neuromusculoskeletal Medicine & OMM
PROC: HZ42ZZZ Group Counseling for Substance Abuse Treatment, Cognitive-Behavioral (ICD-10-PCS; principal; 2019-05-14)
DX: F10.20 Alcohol dependence, uncomplicated (principal); F11.20 Opioid dependence, uncomplicated; F14.20 Cocaine dependence, uncomplicated; F12.20 Cannabis dependence, uncomplicated; F17.210 Nicotine dependence, cigarettes, uncomplicated; F32.9 Major depressive disorder, single episode, unspecified; Z91.013 Allergy to seafood
CPT/HCPCS: Q0162